=== PATIENT | female | born 1930 | race Hispanic/Latino ===

== ENCOUNTER 2016-10-02 09:40 | Outpatient (CLI) | payer MEDICARE ==
--- NOTE | 2016-10-02 16:10 | Vascular Lab Report ---
LOWER EXTREMITY VENOUS DUPLEX: REASON FOR EXAM: Swelling of the lower extremities. COMMENTS ON THE RIGHT: All veins visualized are freely compressible without evidence of internal echogenicity. Flow is spontaneous and phasic throughout. COMMENTS ON THE LEFT: All veins visualized are freely compressible without evidence of internal echogenicity. Flow is spontaneous and phasic throughout. IMPRESSION: No evidence of acute or chronic deep venous thrombosis in either lower extremity.
== END 2016-10-02 09:41 | disposition home or self-care (01) ==
LOC: VAS 09:40
PROVIDERS: ATTEND Internal Medicine
DX: M79.89 Other specified soft tissue disorders (principal); I10 Essential (primary) hypertension; D64.9 Anemia, unspecified
CPT/HCPCS: 93970

== ENCOUNTER 2016-11-12 12:01 | Outpatient (CLI) | payer MEDICARE ==
--- NOTE | 2016-11-12 14:16 | XRay Report ---
ROUTINE CHEST, TWO VIEWS: HISTORY: Cough. The trachea, heart, mediastinal contour, lung page and bony thorax are unremarkable. IMPRESSION: Unremarkable chest x-ray.
--- NOTE | 2016-11-12 14:34 | Fluoroscopy Report ---
FLUOROSCOPY BARIUM SWALLOW HISTORY: Dysphagia, cough FINDINGS: Ski Guide film is unremarkable. Deglutition is normal. There is no evidence for aspiration. There is no evidence for esophageal mass, stricture or mucosal defect. No abnormal dilatation. A small hiatal hernia is identified. Numerous tertiary contractions throughout the mid to distal esophagus were witnessed throughout this exam consistent with spasm. No episodes of reflux were witnessed under fluoroscopy. IMPRESSION: Small hiatal hernia. Esophageal dysmotility. Multiple tertiary contractions were witnessed suggesting esophagitis. This is probably related to reflux disease although no reflux was documented under fluoroscopy.
== END 2016-11-12 12:02 | disposition home or self-care (01) ==
LOC: FLUORO 12:01
PROVIDERS: ATTEND Internal Medicine
DX: K44.9 Diaphragmatic hernia without obstruction or gangrene (principal); K22.4 Dyskinesia of esophagus; R13.10 Dysphagia, unspecified; R06.00 Dyspnea, unspecified; R05 Cough; I10 Essential (primary) hypertension; D64.9 Anemia, unspecified
CPT/HCPCS: 71020; 74220